=== PATIENT | female | born 1960 | race Caucasian/White ===

== ENCOUNTER 2016-10-08 21:16 | Emergency (ER) | payer OTHER ==
[~2016-10-08] VITALS: Ht 165.1 cm; Wt 59.0 kg
[~2016-10-08 21:16] MED LIST: NOHOMEMEDICATIONS; NORCO 5-325 TA1 EACH PO; PHENERGAN 25 MG25 M1 PO
[2016-10-08] MEDS ORDERED: CIPRO500 MG PO (22:33)
[2016-10-08 22:50] VITALS: BP 139/98
== END 2016-10-08 22:34 | disposition home or self-care (01) ==
LOC: ER 21:16
DX: S61.551A Open bite of right wrist, initial encounter (principal); W59.81XA Bitten by other nonvenomous reptiles, initial encounter; Y93.89 Activity, other specified; Y92.89 Other specified places as the place of occurrence of the external cause; Y99.8 Other external cause status